=== PATIENT | female | born 1980 | race Caucasian/White ===

== ENCOUNTER → 2021-08-01 | Outpatient (CLI) | payer OTHER ==
--- NOTE | 2021-08-01 16:06 | RAD ---
XR EXAM OF ANKLE_LEFT 3V DATE: 08/01/2021 1:45 PM INDICATION: Reason: PAIN / Spl. Instructions: / History: COMPARISON: None. FINDINGS: Bones: There is no evidence of acute fracture or dislocation. Joints: The ankle mortise is congruent. No widening of the distal tibiofibular syndesmosis. Miscellaneous: None. IMPRESSION: No evidence of acute fracture. Electronically signed by: Francisco J Seay MD (08/01/2021 4:04 PM) [id number]
== END ==
LOC: RAD 13:31
PROVIDERS: ATTEND Podiatrist
DX: M25.572 Pain in left ankle and joints of left foot (principal)
CPT/HCPCS: 73610